=== PATIENT | female | born 1970 | race Caucasian/White ===

== ENCOUNTER 2022-03-19 22:46 | Emergency (ER) | payer MEDICAID, SELFPAY ==
[2022-03-19 23:01] VITALS: BP 133/92; PULSE 94; RESP 18; TEMP 36.4; O2SAT 95; BMI 39.3
[2022-03-19] MEDS: 0.9 % SODIUM CHLORIDE 1000 ml 1,000 ML IV (23:29)
[2022-03-19 23:39] LABS: Basophils Absolute Auto 0.04 K/uL (0.00-0.30); Basophils Percent Auto 0.5 % (0.0-3.0); Eosinophils Percent Auto 1.2 % (0.0-7.0); Hematocrit 41.6 % (33.0-51.0); Hemoglobin* 13.9 gm/dL (12.0-16.0); Immature Granulocytes Abs Auto 0.06 K/uL (0.00-0.30); Immature Granulocytes Pct Auto 0.7 %; Lymphocytes Absolute Auto 2.18 K/uL (0.90-2.90); Lymphocytes Percent Auto 25.6 % (20-44); Mean Corpuscular HGB Conc 33 gm/dL (32-36); Mean Corpuscular Hemoglobin 32 pg (26-34); Mean Corpuscular Volume 95 fL (80-100); Monocytes Percent Auto 5.4 % (0.0-11.0); Neutrophils Absolute Auto 5.67 K/uL (1.7-7.0); Neutrophils Percent Auto 66.6 % (42.0-72.0); Platelet Count* 226 K/uL (140-440); Red Blood Count 4.37 m/uL (4.00-5.20); White Blood Count* 8.51 K/uL (4.50-11.00)
[2022-03-19 23:44] LABS: Slide Review Reflex No
[2022-03-20 00:02] LABS: Creatinine* 0.6 mg/dL (0.5-1.5); Est. Creatinine Clearance* 100.94; Estimated Glomerular Filt Rate 109 ml/min; Potassium* 3.7 mmol/L (3.6-5.1); Sodium* 141 mmol/L (135-149)
[2022-03-20 00:03] LABS: Alanine Aminotransferase* 25 U/L (4-35); Alkaline Phosphatase* 89 U/L (40-150); Aspartate Amino Transferase* 27 U/L (12-35); Bilirubin Direct* 0.3 mg/dL (0.0-0.5); Bilirubin Total* 0.3 mg/dL (0.1-1.5); Blood Urea Nitrogen* 10 mg/dL (7-30); Calcium* 9.1 mg/dL (8.4-10.6); Carbon Dioxide* 22 mmol/L (20-32); Glucose* 116 mg/dL (60-115); Total Protein* 6.9 g/dL (6.0-8.3)
[2022-03-20 00:06] LABS: C Reactive Protein* 0.9 mg/dL (0.5-1.0); Chloride* 111 mmol/L (96-114)
--- NOTE | 2022-03-20 00:09 | ED.NURSE ---
Filler Picker Chaperoned rectal exam.
--- NOTE | 2022-03-20 00:39 | ED.GIBLEED ---
HPI - GI Bleed General Chief complaint: GI Bleed Stated complaint: Abdominal Cramping, blood in stool Time Seen by Provider: 03/19/22 22:54 History of Present Illness HPI Narrative: 51-year-old woman presenting to the emergency department with concern of abdominal cramping and rectal bleeding. Presents about 9 hours after this started. Indicates cramping across the low abdomen and demonstrates golf ball-sized clots with her hand/finger gestures. Did have some harder stools yesterday. Thought that maybe that is what had contributed but it has continued. She does have Lamictal and can be prone to harder stools. What she has been producing in the toilet isn't actually stool. Has not had any fever. No diarrhea. Is not feeling lightheaded or short of breath. Mentions her concern also in part that she is a smoker. She does acknowledge that she is now 51 years old and due for her colonoscopy. Related Data Home Medications Medication Instructions Recorded Confirmed cholecalciferol (vitamin D3) 25 25 mcg PO DAILY 03/19/22 03/19/22 mcg (1,000 unit) capsule ibuprofen 200 mg capsule 800 mg PO Q6-8H PRN 03/19/22 03/19/22 lamotrigine 200 mg tablet 200 mg PO DAILY 03/19/22 03/19/22 (Lamictal) vitamin B complex (B 1 tab PO DAILY 03/19/22 03/19/22 Complex-Vitamin B12 tablet) Allergies Allergy/AdvReac Type Severity Reaction Status Date / Time latex Allergy Intermediate Rash Verified 03/19/22 22:57 tetnus Allergy Rash Uncoded 03/19/22 22:57 Review of Systems Status of ROS: Reports: 10 or more systems reviewed and unremarkable except as noted in History and below [facility] Social History Smoking Status: Current every day smoker What tobacco products do you use: cigarettes Smoking packs per day: 0.5 Smoking cigarettes per day: 10.0 Do you use any of these nicotine containing products: None Second hand tobacco smoke exposure: No How often do you have a drink containing alcohol: monthly or less How often do you have six or more drinks on one occasion: Never AUDIT-C Alcohol total score: 1 Non-prescribed substance use: marijuana (any form) service: No Exam Narrative: Exam Narrative: Pleasant. NAD. Skin is warm and dry. Smokes a little of cigarette smoke. Oropharynx hyperemic moist. Lungs are clear. Cardiovascular with a heart rate that is little elevated. Regular rhythm. Murmur identified. Abdomen normoactive bowel sounds is soft. Very mildly tender to palpation across the low abdomen/suprapubic area. No flank pain. Extremities are well perfused. They are without edema. Moving extremities without difficulty. Cranial nerves 2-12 to be intact I returned later with nursing fund accounting manager for anoscopy exam. There is small external hemorrhoidal tissue at 9 o'clock position. I do not see significant active bleeding otherwise. Very small amount of clotted blood at the far end of the anoscope. Const: Vital Signs, click to edit/add: Vital Signs - 24 hr 03/19/22 23:01 03/20/22 01:07 Temperature 97.6 F Pulse Rate [Pulse Oximeter] 94 96 Respiratory Rate 18 16 Blood Pressure [Le ft Upper Arm] 133/92 H 123/84 Pulse Oximetry 95 Oxygen Delivery Me thod Room Air Documenting provider has reviewed patient's vital signs: yes Course Vital Signs Vital signs: Initial Vital Signs Temperature 97.6 F 03/19/22 23:01 Temperature Source Temporal Artery Scan 03/19/22 23:01 Pulse Rate 94 03/19/22 23:01 Respiratory Rate 18 03/19/22 23:01 Blood Pressure 133/92 H 03/19/22 23:01 Blood Pressure Mean 105 03/19/22 23:01 Pulse Oximetry 95 03/19/22 23:01 Oxygen Delivery Method 03/19/22 23:01 Vital Signs Temperature 97.6 F 03/19/22 23:01 Pulse Rate 94 03/19/22 23:01 Respiratory Rate 18 03/19/22 23:01 Blood Pressure 133/92 H 03/19/22 23:01 Pulse Oximetry 95 03/19/22 23:01 Oxygen Delivery Method 03/19/22 23:01 Temperature 97.6 F 03/19/22 23:01 Pulse Rate 96 03/20/22 01:07 Respiratory Rate 16 03/20/22 01:07 Blood Pressure 123/84 03/20/22 01:07 Pulse Oximetry 95 03/19/22 23:01 Oxygen Delivery Method 03/19/22 23:01 MDM - GI Bleed MDM Narrative Medical decision making narrative: First visit to bathroom produced a very small amount of bloody mucus. 2 visits to the bathroom here now with no more bleeding. Did not need anything for pain. Received L of IV fluid. Labs overall reassuring. Hemoglobin in good range in given no more bleeding did not repeat. I suppose this could be a settled diverticular bleed. Abdomen certainly does not represent an acute belly. I do not see much evidence of rectal passage bleeding but with constipation recently I suppose this could have played a role. Lab Data Attestation: I reviewed the patient's lab results. Labs: Lab Results 03/19/22 03/19/22 Range/Units 23:30 23:30 WBC 8.51 (4.50-11.00) K/uL RBC 4.37 (4.00-5.20) m/uL Hgb 13.9 (12.0-16.0) gm/dL Hct 41.6 (33.0-51.0) % MCV 95 (80-100) fL MCH 32 (26-34) pg MCHC 33 (32-36) gm/dL RDW Coeff of [place] 12.0 (11.5-15.5) % Plt Count 226 (140-440) K/uL Neut % (Auto) 66.6 (42.0-72.0) % Lymph % (Auto) 25.6 (20-44) % [place] % (Auto) 5.4 (0.0-11.0) % Eos % (Auto) 1.2 (0.0-7.0) % Baso % (Auto) 0.5 (0.0-3.0) % Neut # (Auto) 5.67 (1.7-7.0) K/uL Lymph # (Auto) 2.18 (0.90-2.90) K/uL [place] # (Auto) 0.50 (0.00-0.90) K/UL Eos # (Auto) 0.10 (0.00-0.50) K/uL Baso # (Auto) 0.04 (0.00-0.30) K/uL Sodium 141 (135-149) mmol/L Potassium 3.7 (3.6-5.1) mmol/L Chloride 111 (96-114) mmol/L Carbon Dioxide 22 (20-32) mmol/L BUN 10 (7-30) mg/dL Creatinine 0.6 (0.5-1.5) mg/dL Estimated Creat Clear 100.94 Estimated GFR 109 ml/min Glucose 116 H (60-115) mg/dL Calcium 9.1 (8.4-10.6) mg/dL Total Bilirubin 0.3 (0.1-1.5) mg/dL Direct Bilirubin 0.3 (0.0-0.5) mg/dL AST 27 (12-35) U/L ALT 25 (4-35) U/L Alkaline Phosphatase 89 (40-150) U/L C-Reactive Protein 0.9 (0.5-1.0) mg/dL Total Protein 6.9 (6.0-8.3) g/dL Albumin 4.0 (3.3-5.0) g/dL Discharge Plan Discharge Clinical Impression: Abdominal cramping, Acute lower GI bleeding, Hemorrhoid, Constipation Patient Disposition: Home w/ Parent or Adult Condition: Improved Additional Instructions: As discussed, please follow-up with your primary care provider to schedule your colonoscopy as soon as possible. Return for marked increase in bleeding, worsening and persistent abdominal pain, associated fever. Otherwise, stay well-hydrated. Might go with a bottom hoop driver diet over the next 2 days. Diluted juices, soup broths advancing to thicker soups and smoothies. Rice. [place]. Probably be a good idea to work to soften your stools. MiraLax equivalent 2-3 doses by around noon then adjusting to stool consistency over 1-2 weeks. If really hard stool, I would consider placement of an enema. Prescriptions: No Action lamotrigine [Lamictal] 200 mg tablet 200 mg PO DAILY cholecalciferol (vitamin D3) 25 mcg (1,000 unit) capsule 25 mcg PO DAILY vitamin B complex [B Complex-Vitamin B12] Tablet 1 tab PO DAILY ibuprofen 200 mg capsule 800 mg PO Q6-8H PRN Follow Up/Referrals: Provider,Not a Local [Primary Care Provider] - Stand Alone Forms: MyHealth Info Instructions
[2022-03-20 01:07] VITALS: BP 123/84; PULSE 96; RESP 16
== END 2022-03-20 01:07 | disposition home or self-care (01) ==
PROVIDERS: Emergency Provider Family Medicine
DX: R10.30 Lower abdominal pain, unspecified (principal); K92.2 Gastrointestinal hemorrhage, unspecified; K64.9 Unspecified hemorrhoids; K59.00 Constipation, unspecified
CPT/HCPCS: 36415; 46600; 80048; 80076; 85025; 86140; 96360; 99284; J7030